=== PATIENT | female | born 1945 | race Caucasian/White ===

== ENCOUNTER 2020-08-25 16:47 | Outpatient (RCR) | payer MEDICARE, SELFPAY | END 2020-08-25 23:59 | LOC: IMMUN 16:47 | PROVIDERS: PCP Preventive Medicine Occupational Medicine; Referring Provider Family Medicine; Visit Provider Family Medicine | DX: Z23 Encounter for immunization (principal) | CPT/HCPCS: 0011A; 0012A ==